=== PATIENT | male | born 1945 | race Caucasian/White ===

== ENCOUNTER 2016-10-19 15:17 | Emergency (ER) | payer OTHER ==
[2016-10-19 15:27] VITALS: BP 122/75
--- NOTE | 2016-10-19 16:56 | UC ---
Throat Pain/Nasal Rah HPI - HPI Summary HPI Summary: FOUR DAYS OF SORE THROAT, CONGESTION, NONPRODUCTIVE COUGH. NO FEVER. - History of Current Complaint Chief Complaint: UCRespiratory Stated Complaint: COUGH Time Seen by Provider: 10/19/16 15:19 Hx Obtained From: Patient Onset/Duration: Gradual Onset, Lasting Days, Still Present Severity: Moderate Pain Intensity: 0 Pain Scale Used: 0-10 Numeric Cough: Nonproductive Associated Signs & Symptoms: Positive: Hoarseness, Sinus Discomfort, Nasal Discharge - Epiglottits Risk Factors Epiglottis Risk Factors: Negative - Allergies/Home Medications Allergies/Adverse Reactions: Allergies Allergy/AdvReac Type Severity Reaction Status Date / Time Penicillins Allergy Severe Swelling Verified 10/19/16 15:26 Home Medications: Home Medications prednisoLONE 0.12% OPTH.SUSP* [Pred Mild 0.12% Opth.SUSP*] 1 drop .SEE ORDER DAILY 10/19/16 [History Confirmed 10/19/16] PMH/Surg Hx/FS Hx/Imm Hx Previously Healthy: Yes - Surgical History Surgical History: Yes Surgery Procedure, Year, and Place: CATARACT SX - Family History Known Family History: Positive: Cardiac Disease, Hypertension - Social History Occupation: Retired Lives: With Family Alcohol Use: None Substance Use Type: None Smoking Status (MU): Former Smoker Type: Cigarettes Have You Smoked in the Last Year: No - Immunization History Most Recent Tetanus Shot: 3-4 years ago Hx Tetanus, Diphtheria Vaccination: Yes Vaccination Up to Date: Yes Review of Systems Constitutional: Negative Skin: Negative Eyes: Negative ENT: Sore Throat, Ear Ache - EARS FULL OF WAX, Nasal Discharge, Sinus Congestion , Sinus Pain/Tenderness Respiratory: Cough Cardiovascular: Negative Gastrointestinal: Negative Genitourinary: Negative Motor: Negative Neurovascular: Negative Musculoskeletal: Negative Neurological: Negative Psychological: Negative All Other Systems Reviewed And Are Negative: Yes Physical Exam Triage Information Reviewed: Yes Appearance: Well-Appearing, No Pain Distress, Well-Nourished Vital Signs: Initial Vital Signs Temp 98.5 F 10/19/16 15:23 Pulse 70 10/19/16 15:23 Resp 14 10/19/16 15:23 BP 122/75 10/19/16 15:23 Pulse Ox 100 10/19/16 15:23 Vital Signs Reviewed: Yes Eye Exam: Normal ENT: Positive: Hearing grossly normal, Pharynx normal, TM bulging, TM dull, Other: - CERUMEN IMPACTION BILATERAL Dental Exam: Normal Neck exam: Normal Neck: Positive: Supple, Nontender, No Lymphadenopathy Respiratory Exam: Normal Respiratory: Positive: Chest non-tender, Lungs clear, Normal breath sounds, No respiratory distress, No accessory muscle use Cardiovascular Exam: Normal Cardiovascular: Positive: RRR, No Murmur, Pulses Normal Abdominal Exam: Normal Musculoskeletal Exam: Normal Musculoskeletal: Positive: Strength Intact, ROM Intact Neurological Exam: Normal Psychological Exam: Normal Skin Exam: Normal Throat Pain/Nasal Course/Dx - Differential Dx/Diagnosis Differential Diagnosis/HQI/PQRI: Pharyngitis, Sinusitis, Tonsillitis, URI Provider Diagnoses: SINUSITIS, BILATERAL CERUMEN IMPACTION. BRONCHITIS Discharge - Discharge Plan Condition: Stable Disposition: HOME Prescriptions: DOXYcycline CAP(*) [DOXYcycline 100MG CAP(*)] 100 mg PO BID #20 cap Patient Education Materials: Sinusitis (ED), Cerumen Impaction (ED), Acute Bronchitis (ED) Referrals: Jake Mccray MD [Primary Care Provider] -
== END 2016-10-19 16:20 | disposition home or self-care (01) ==
LOC: UCCORT 15:17
DX: J32.9 Chronic sinusitis, unspecified (principal); H61.23 Impacted cerumen, bilateral; J40 Bronchitis, not specified as acute or chronic; Z88.0 Allergy status to penicillin; Z87.891 Personal history of nicotine dependence
CPT/HCPCS: 99213; G0463

== ENCOUNTER 2016-11-18 14:14 | Emergency (ER) | payer OTHER ==
[2016-11-18 14:45] VITALS: BP 120/75
--- NOTE | 2016-11-18 15:14 | UC ---
Knee Pain HPI - HPI Summary HPI Summary: Worsening left knee pain over the last week. - History of Current Complaint Chief Complaint: UCLowerExtremity Stated Complaint: LEFT KNEE PAIN Time Seen by Provider: 11/18/16 15:08 Hx Obtained From: Patient Onset/Duration: Gradual Onset, Lasting Weeks - 1, Worse Since - last 3 days after climbing a ladder. Character: Dull, Throbbing, Burning Aggravating Factor(s): Prolonged Standing, Stairs Alleviating Factor(s): Rest Associated Signs And Symptoms: Positive: Swelling, Tingling. Negative: Redness , Bruising, Weakness Able to Bear Weight: Yes - Risk Factors Septic Arthritis Risk Factor: Extremes of Age Gout Risk Factor: Age ^ 40 - Allergies/Home Medications Allergies/Adverse Reactions: Allergies Allergy/AdvReac Type Severity Reaction Status Date / Time Penicillins Allergy Severe Swelling Verified 11/18/16 14:45 PMH/Surg Hx/FS Hx/Imm Hx Endocrine History: Dyslipidemia GI/ History: Gastroesophageal Reflux - Surgical History Surgical History: Yes Surgery Procedure, Year, and Place: CATARACT SX - Family History Known Family History: Positive: Cardiac Disease, Hypertension - Social History Occupation: Retired Lives: Alone Alcohol Use: None Substance Use Type: None Smoking Status (MU): Former Smoker Type: Cigarettes Have You Smoked in the Last Year: No - Immunization History Most Recent Tetanus Shot: 3-4 years ago Hx Tetanus, Diphtheria Vaccination: Yes Vaccination Up to Date: Yes Review of Systems Respiratory: Cough - occasional dry cough Musculoskeletal: Arthralgia - left knee Is Patient Immunocompromised?: No All Other Systems Reviewed And Are Negative: Yes Physical Exam Triage Information Reviewed: Yes Appearance: Well-Appearing, No Pain Distress, Well-Nourished Vital Signs: Initial Vital Signs Temp 98.6 F 11/18/16 14:41 Pulse 62 11/18/16 14:41 Resp 17 11/18/16 14:41 BP 120/75 11/18/16 14:41 Pulse Ox 98 11/18/16 14:41 Vital Signs Reviewed: Yes Eyes: Positive: Conjunctiva Clear Neck exam: Normal Respiratory Exam: Normal Cardiovascular Exam: Normal Musculoskeletal: Positive: ROM Limited @ - left knee flexion with pain., Other: - Tender and swollen over the left pes anserine bursa. Neurological Exam: Normal Psychological Exam: Normal Skin Exam: Normal Procedures - Procedure Summary Procedure Summary: Injection left pes anserine bursa: Consent. Time out. Betadine prep. 0.5cc kenalog 40 and 1cc 1% xylo injected in a 4 quadrant approach around the area of greatest pain. Well tolerated. 80% improvement in pain. Knee Pain Course/Dx - Differential Dx/Diagnosis Differential Diagnosis/HQI/PQRI: Abrasion, Bursitis, Contusion, Patellofemoral Syndrome Provider Diagnoses: Left pes anserine bursitis. S/P injection Discharge - Discharge Plan Condition: Stable Disposition: HOME Patient Education Materials: Knee Bursitis (ED), Triamcinolone (By injection) Additional Instructions: If the pain worsens again, go for PT. If there are any signs of infection, redness, swelling, warmth and increasing pain, come back immediately.
[2016-11-18] MEDS ORDERED: Triamcinolone Acetonide* 40 MG/ML 1 ML VIAL INTRAARTIC ONE (15:23)
[2016-11-18] MEDS ORDERED: Lidocaine 1% MPF* 2 ML VIAL INJ ONE (15:23)
== END 2016-11-18 15:55 | disposition home or self-care (01) ==
LOC: UCCORT 14:14
DX: M70.52 Other bursitis of knee, left knee (principal); E78.5 Hyperlipidemia, unspecified; K21.9 Gastro-esophageal reflux disease without esophagitis; Z87.891 Personal history of nicotine dependence; Z88.0 Allergy status to penicillin
CPT/HCPCS: 99211; G0463; J3301

== ENCOUNTER 2016-12-19 10:22 | Emergency (ER) | payer OTHER ==
[2016-12-19 10:42] VITALS: BP 123/70
--- NOTE | 2016-12-19 10:55 | UC ---
Respiratory Complaint HPI - HPI Summary HPI Summary: cough / chest congestion x 4 days no fever, no chills, + nasal congestion , PND no wheezing , no sob - History of Current Complaint Chief Complaint: UCRespiratory Stated Complaint: COUGH Time Seen by Provider: 12/19/16 10:48 Hx Obtained From: Patient Onset/Duration: Gradual Onset, Lasting Days - 4, Still Present Timing: Constant Severity Initially: Moderate Severity Currently: Moderate Character: Cough: Nonproductive Aggravating Factors: Exertion, Deep Breaths Alleviating Factors: Nothing Associated Signs And Symptoms: Positive: URI, Nasal Congestion. Negative: Dyspnea, Fever, Chills, Pleuritic Chest Pain, Wheezing, Hemoptysis, Dizziness, Calf Pain, Calf Swelling, Edema, Hoarseness, Sinus Discomfort - Allergies/Home Medications Allergies/Adverse Reactions: Allergies Allergy/AdvReac Type Severity Reaction Status Date / Time Penicillins Allergy Severe Swelling Verified 12/19/16 10:34 PMH/Surg Hx/FS Hx/Imm Hx - Additional Past Medical History Additional PMH: high cholesterol VIT D DEFIECENCY - Surgical History Surgical History: Yes Surgery Procedure, Year, and Place: CATARACT SX - Family History Known Family History: Positive: Cardiac Disease, Hypertension - Social History Alcohol Use: None Substance Use Type: None Smoking Status (MU): Former Smoker Type: Cigarettes Have You Smoked in the Last Year: No - Immunization History Most Recent Influenza Vaccination: NOV 2016 Most Recent Tetanus Shot: 3-4 years ago Hx Tetanus, Diphtheria Vaccination: Yes Vaccination Up to Date: Yes Review of Systems Constitutional: Negative Skin: Negative Eyes: Negative ENT: Nasal Discharge, Sinus Congestion Respiratory: Cough Cardiovascular: Negative Gastrointestinal: Negative Genitourinary: Negative Is Patient Immunocompromised?: No All Other Systems Reviewed And Are Negative: Yes Physical Exam Triage Information Reviewed: Yes Appearance: Well-Appearing, No Pain Distress, Well-Nourished Vital Signs: Initial Vital Signs Temp 97.6 F 12/19/16 10:36 Pulse 61 12/19/16 10:36 Resp 20 12/19/16 10:36 BP 123/70 12/19/16 10:36 Pulse Ox 99 12/19/16 10:36 Vital Signs Reviewed: Yes Eyes: Positive: Conjunctiva Clear ENT: Positive: Normal ENT inspection, Hearing grossly normal, Pharynx normal, Nasal congestion, Nasal drainage, TMs normal Neck: Positive: Supple, Nontender, No Lymphadenopathy Respiratory: Positive: Chest non-tender, Lungs clear, Normal breath sounds Cardiovascular: Positive: RRR, No Murmur, Pulses Normal Abdominal Exam: Normal Skin Exam: Other UC Diagnostic Evaluation - Laboratory O2 Sat by Pulse Oximetry: 99 Respiratory Course/Dx - Differential Dx/Diagnosis Provider Diagnoses: URI Discharge - Discharge Plan Condition: Stable Disposition: HOME Prescriptions: Guaifenesin-Codeine [Cheratussin AC] 10 ml PO Q6H PRN #120 ml MDD 40 ml PRN Reason: Cough Patient Education Materials: Upper Respiratory Infection (ED) Referrals: Jake Mccray MD [Primary Care Provider] - 7 Days
== END 2016-12-19 11:22 | disposition home or self-care (01) ==
LOC: UCCORT 10:22
DX: J06.9 Acute upper respiratory infection, unspecified (principal); Z88.0 Allergy status to penicillin
CPT/HCPCS: 99212; G0463

== ENCOUNTER 2017-08-06 14:56 | Emergency (ER) | payer OTHER ==
[2017-08-06 15:24] VITALS: BP 115/68
--- NOTE | 2017-08-06 15:53 | ED ---
HPI Febrile Illness - HPI Summary HPI Summary: 72 yr old male with the complaint of coughing, fever, chills, headache, fatigue , sinus pressure, mild dyspnea. Onset of symptoms a week ago. Denies CP. He denies having medical problems. - History of Current Complaint Chief Complaint: UCHeadache Time Seen by Provider: 08/06/17 15:33 Pain Intensity: 2 - Allergy/Home Medications Allergies/Adverse Reactions: Allergies Allergy/AdvReac Type Severity Reaction Status Date / Time MS Penicillins [Penicillins] Allergy Severe Swelling Verified 12/19/16 10:34 Penicillins Allergy Swelling Verified 08/06/17 15:11 Home Medications: Home Medications Ibuprofen TAB* [Advil TAB*] 400 mg PO Q6H PRN 08/06/17 [History Confirmed ] Naproxen Sodium [Aleve] 220 mg PO DAILY 08/06/17 [History Confirmed 08/06/17] Propylene Glycol/Peg 400/Pf [Systane 0.3-0.4% Eye Drops] 1 each OP TID 08/06/17 [History Confirmed 08/06/17] PMH/Surg Hx/FS Hx/Imm Hx Endocrine/Hematology History: Denies: Hx Diabetes, Hx Thyroid Disease Cardiovascular History: Denies: Hx Hypertension, Other Cardiovascular Problems/Disorders Respiratory History: Denies: Hx Asthma, Hx Chronic Obstructive Pulmonary Disease (COPD) GI History: Denies: Hx Ulcer - Surgical History Surgery Procedure, Year, and Place: CATARACT SX Infectious Disease History: Yes Infectious Disease History: Reports: Hx Shingles Denies: Hx Clostridium Difficile, Hx Hepatitis, Hx Human Immunodeficiency Virus (HIV), Hx of Known/Suspected MRSA, Hx Tuberculosis, Hx Known/Suspected VRE , Hx Known/Suspected VRSA, History Other Infectious Disease, Traveled Outside the [place] in Last 30 Days - Family History Known Family History: Positive: Cardiac Disease, Hypertension - Social History Alcohol Use: None Substance Use Type: Reports: None Smoking Status (MU): Former Smoker Type: Cigarettes Have You Smoked in the Last Year: No Review of Systems Constitutional: Negative Positive: Fever, Chills Positive: Nasal Discharge Positive: Shortness Of Breath, Cough Positive: Diarrhea. Negative: Abdominal Pain, Vomiting Negative: burning, dysuria, discharge, urgency Positive: Headache All Other Systems Reviewed And Are Negative: Yes Physical Exam Triage Information Reviewed: Yes Vital Signs On Initial Exam: Initial Vitals Temp Pulse Resp BP Pulse Ox 100 F 73 16 115/68 98 08/06/17 15:16 08/06/17 15:16 08/06/17 15:16 08/06/17 15:16 08/06/17 15:16 Vital Signs Reviewed: Yes Appearance: Positive: Well-Appearing, No Pain Distress Skin: Positive: Warm, Skin Color Reflects Adequate Perfusion Head/Face: Positive: Normal Head/Face Inspection Eyes: Positive: EOMI ENT: Positive: Pharynx normal, TMs normal, Sinus tenderness. Negative: Muffled voice, Hoarse voice Neck: Positive: Nontender Respiratory/Lung Sounds: Positive: Clear to Auscultation, Breath Sounds Present Cardiovascular: Positive: RRR. Negative: Murmur Abdomen Description: Positive: Nontender Musculoskeletal: Positive: Strength/ROM Intact Neurological: Positive: Sensory/Motor Intact, Alert, Oriented to Person Place, Time, CN Intact II-III Psychiatric: Positive: Normal - [place] Coma Scale Best Eye Response: 4 - Spontaneous Best Motor Response: 6 - Obeys Commands Best Verbal Response: 5 - Oriented Coma Scale Total: 15 Diagnostics - Vital Signs Vital Signs Temp Pulse Resp BP Pulse Ox 08/06/17 15:16 100 F 73 16 115/68 98 - Laboratory Lab Statement: Any lab studies that have been ordered have been reviewed, and results considered in the medical decision making process. - Radiology chest xray Xray Interpretation: No Acute Changes Radiology Interpretation Completed By: Radiologist Course/Dx - Course Course Of Treatment: 72 yr old with neg chest xray. Neg urine and influenza. He has sinus and ear pressure. Will Rx with Doxycycline for sinusitis. - Diagnoses Provider Diagnoses: Sinusitis Discharge - Sign-Out/Discharge Documenting (check all that apply): Discharge/Admit/Transfer - Discharge Plan Condition: Good Disposition: HOME Prescriptions: DOXYcycline CAP(*) [DOXYcycline 100MG CAP(*)] 100 mg PO BID #20 cap Patient Education Materials: Sinusitis (ED) Referrals: Jake Mccray MD [Primary Care Provider] - 2 Days - Billing Disposition and Condition Condition: GOOD Disposition: Home
--- NOTE | 2017-08-06 16:04 | RAD ---
INDICATION: Cough, fever. Shortness of breath. Head and neck ache. Diarrhea. COMPARISON: August 07, 2015 TECHNIQUE: Dual energy PA and routine lateral views of the chest were obtained. REPORT: No pulmonary infiltrate, pleural effusion, or pneumothorax evident. Accounting for mild leftward rotation the heart, pulmonary vasculature, and mediastinal contours are unremarkable. Negative for free air beneath the diaphragm. Increased thoracic kyphosis. No compelling thoracic compression fractures. IMPRESSION: No evidence for pneumonia. No evidence for acute intrathoracic disease.
== END 2017-08-06 16:43 | disposition home or self-care (01) ==
LOC: UCCORT 14:56
DX: J32.9 Chronic sinusitis, unspecified (principal); Z88.0 Allergy status to penicillin
CPT/HCPCS: 71046; 81003; 87502; 99212; G0463

== ENCOUNTER 2018-11-14 10:36 | Emergency (ER) | payer OTHER ==
[2018-11-14 11:21] VITALS: BP 125/76
--- NOTE | 2018-11-14 11:33 | UC ---
Respiratory Complaint HPI - HPI Summary HPI Summary: 73-year-old male who appears younger than his stated age. He's had head congestion for the past 4-5 days and he is going to [place] on a trip and wanted to make sure that he was not contagious. He is a nonsmoker. Denies any fever or chills. Denies shortness of breath or difficulty breathing. - History of Current Complaint Chief Complaint: UCRespiratory Stated Complaint: COUGH Time Seen by Provider: 11/14/18 11:31 Hx Obtained From: Patient Onset/Duration: Gradual Onset Timing: Intermittent Episodes Severity Initially: Mild Severity Currently: Mild Pain Intensity: 0 Character: Cough: Productive - Occasionally productive of scant yellow sputum. Aggravating Factors: Nothing Alleviating Factors: Spontaneous Resolution Associated Signs And Symptoms: Positive: URI, Nasal Congestion - Allergies/Home Medications Allergies/Adverse Reactions: Allergies Allergy/AdvReac Type Severity Reaction Status Date / Time Penicillins Allergy Swelling, Verified 11/14/18 11:08 immobility Home Medications: Home Medications Cholecalciferol TAB* [Vitamin D TAB*] 1,000 unit PO DAILY 11/14/18 [History Confirmed 11/14/18] raNITIdine HCl [Ranitidine HCl] 75 mg PO BID 11/14/18 [History Confirmed ] PMH/Surg Hx/FS Hx/Imm Hx Previously Healthy: Yes - Surgical History Surgical History: Yes Surgery Procedure, Year, and Place: CATARACT SX; eyelids 2017 - Family History Known Family History: Positive: Cardiac Disease, Hypertension - Social History Occupation: Retired Alcohol Use: None Substance Use Type: None Smoking Status (MU): Former Smoker Type: Cigarettes Have You Smoked in the Last Year: No When Did the Patient Quit Smoking/Using Tobacco: 1984 - Immunization History Most Recent Influenza Vaccination: NOV 2016 Most Recent Tetanus Shot: 3-4 years ago Hx Tetanus, Diphtheria Vaccination: Yes Vaccination Up to Date: Yes Review of Systems All Other Systems Reviewed And Are Negative: Yes ENT: Positive: Nasal Discharge - Clear nasal coryza Respiratory: Positive: Cough - Occasionally productive of scant yellow sputum. Is Patient Immunocompromised?: No Physical Exam Triage Information Reviewed: Yes Appearance: Well-Appearing, No Pain Distress, Well-Nourished Vital Signs: Initial Vital Signs Temp 98 F 11/14/18 11:16 Pulse 62 09/12/19 11:16 Resp 18 11/14/18 11:16 BP 125/76 11/14/18 11:16 Pulse Ox 98 11/14/18 11:16 Vital Signs Reviewed: Yes Eyes: Positive: Conjunctiva Clear ENT: Positive: Pharynx normal, Nasal congestion, TMs normal - Unable to visualize left tympanic membranes because of dry cerumen in ear canal., Uvula midline Neck: Positive: Supple, Nontender, No Lymphadenopathy Respiratory: Positive: Lungs clear, Normal breath sounds, No respiratory distress, No accessory muscle use Cardiovascular: Positive: RRR, No Murmur, Pulses Normal, Brisk Capillary Refill Musculoskeletal Exam: Normal Neurological Exam: Normal Psychological Exam: Normal Skin Exam: Normal Respiratory Course/Dx - Course Course Of Treatment: I believe the patient has a viral upper respiratory illness and because he's 4 days into it he is no longer contagious. The patient needed this reassurance prior to his trip to [place]. - Differential Dx/Diagnosis Provider Diagnosis: URI (upper respiratory infection) Discharge ED - Sign-Out/Discharge Documenting (check all that apply): Patient Departure All imaging exams completed and their final reports reviewed: No Studies - Discharge Plan Condition: Good Disposition: HOME Patient Education Materials: Upper Respiratory Infection (DC) Referrals: Jake Mccray MD [Primary Care Provider] - Additional Instructions: You may use [id number] cold medicines as directed and as needed. Follow- up with your primary care provider early next week if no improvement in symptoms. - Billing Disposition and Condition Condition: GOOD Disposition: Home
== END 2018-11-14 11:42 | disposition home or self-care (01) ==
LOC: UCCORT 10:36
DX: J06.9 Acute upper respiratory infection, unspecified (principal); Z88.0 Allergy status to penicillin; Z87.891 Personal history of nicotine dependence
CPT/HCPCS: 99211; G0463

== ENCOUNTER 2019-12-02 10:29 | Inpatient (IN) ==
[~2019-12-02 10:29] MED LIST: Buffered Lidocaine 1% SYRIN 1 ml INTRADERM ONE; Lactated Ringers 1000 ml BAG 1,000 ML IV SCH; Sodium Citrate/Citric Acid LIQ 15 ML UDC PO ONE
[2019-12-02] MEDS ORDERED: Sodium Citrate/Citric Acid LIQ 15 ML UDC ONE (10:44)
[2019-12-02] MEDS ORDERED: Clindamycin 900 MG/D5W BAG 900 MG/50 ML BAG IVPB ONE (10:45)
[2019-12-02] MEDS ORDERED: Midazolam 5 mg/5 ml VIAL 1 mg/ml 5 ml VIAL (5 mg) ONE (11:55)
[2019-12-02] MEDS ORDERED: Phenylephrine 40 mcg/mL 10mL (400mcg) SYRINGE ONE (11:56)
[2019-12-02] MEDS ORDERED: Bupivacaine 0.5% SDV PF 30ML VIAL ONE (12:01)
[2019-12-02] MEDS ORDERED: Lidocaine 1% MPF 5 ML VIAL ONE (12:18)
[2019-12-02] MEDS ORDERED: ROPIVACAINE 5 MG/ML 30 ML BTL (0.5%) ONE (12:18)
[2019-12-02] MEDS ORDERED: oxyCODONE/Acetamin 5/325 mg TAB PO PRN (14:35)
[2019-12-02] MEDS ORDERED: Magnesium Hydroxide LIQ 30 ML UDC PO PRN (14:35)
[2019-12-02] MEDS ORDERED: Ondansetron ODT 4 mg TAB 4 MG TAB PO PRN (14:35)
[2019-12-02] MEDS ORDERED: Ondansetron 4 mg VIAL 2 MG/ML 2 ml VIAL IV PRN ×2 (14:35)
[2019-12-02] MEDS ORDERED: Lactulose 30 ml UDC PO PRN (14:35)
[2019-12-02] MEDS ORDERED: diPHENhydraMINE 25 mg TAB PO PRN (14:35)
[2019-12-02] MEDS ORDERED: diPHENhydraMINE IV 50 MG/ML 1 ml VIAL (BENADRYL) IV PRN (14:35)
[2019-12-02] MEDS ORDERED: fentaNYL 100 mcg/2 ml 50 MCG/ML VIAL IV PRN (14:35)
[2019-12-02] MEDS ORDERED: Naloxone 0.4 mg VIAL 0.4 mg/ml 1 ml VIAL IV PRN (14:35)
[2019-12-02] MEDS ORDERED: Glycopyrrolate IV 0.2 MG/ML 1 ML VIAL ONE (14:52)
[2019-12-02] MEDS: Lactated Ringers 1000 ml BAG 1,000 ML IV SCH (17:00)
[2019-12-02] MEDS ORDERED: Latanoprost 0.005% 2.5 ml BTL BOTH EYES SCH ×2 (18:00→21:00)
[2019-12-02] MEDS: Magnesium Hydroxide LIQ 30 ML UDC PO SCH (20:03)
[2019-12-02] MEDS: Fluticasone NASAL SPRAY 50MCG 16 gm SPRAY BTL INTRANASAL SCH (20:03)
[2019-12-02] MEDS: Clindamycin 600 MG/D5W BAG 600 MG/50 ML BAG IV SCH (21:06)
[2019-12-03] MEDS: Lactated Ringers 1000 ml BAG 1,000 ML IV SCH (03:50)
[2019-12-03] MEDS: Clindamycin 600 MG/D5W BAG 600 MG/50 ML BAG IV SCH ×2 (04:47→11:17)
[2019-12-03 06:04] LABS: Hematocrit 30 % (42-52); Hemoglobin 10.3 g/dL (14.0-18.0); Mean Platelet Volume 7.6 fL (7.4-10.4); Platelet Count 238 10^3/uL (150-450)
[2019-12-03 06:21] LABS: BUN/Creatinine Ratio 10.8 (8-20); Calcium 8.5 mg/dL (8.6-10.3); EGFR African American 86.4 (>60); EGFR Non-African American 71.4 (>60); Potassium 3.8 mmol/L (3.5-5.0)
[2019-12-03] MEDS: oxyCODONE/Acetamin 5/325 mg TAB PO PRN ×2 (07:51→13:29)
[2019-12-03] MEDS: Fluticasone NASAL SPRAY 50MCG 16 gm SPRAY BTL INTRANASAL SCH (07:52)
[2019-12-03] MEDS: Magnesium Hydroxide LIQ 30 ML UDC PO SCH ×2 (07:53→07:54)
[2019-12-03] MEDS ORDERED: Vitamin THERAPEUTIC TAB PO SCH (09:00)
[2019-12-03 11:23] VITALS: BP 119/58
== END 2019-12-03 13:30 | disposition home health service (06) | DRG 302 ==
LOC: AA 10:29 → SSU 16:53
PROVIDERS: ADMIT Orthopaedic Surgery Adult Reconstructive Orthopaedic Surgery; ATTEND Orthopaedic Surgery Adult Reconstructive Orthopaedic Surgery